=== PATIENT | male | born 1950 | race Caucasian/White ===

== ENCOUNTER → 2024-04-12 | Outpatient (CLI) | payer OTHER, SELFPAY ==
--- NOTE | 2024-04-12 14:30 | XR_ITS ---
Examination: Carotid arterial duplex scan, ultrasound. Date and time of exam: April 12, 2024 1435 hours INDICATIONS: Dizziness ataxia falling episodes beginning 3 months ago Technique: Multiple sonographic images have been obtained of the carotid arteries and vertebral arteries, B-mode/grayscale imaging and Doppler spectral analysis and color flow Peak systolic and diastolic velocities have been recorded. Systolic diastolic ratios have been calculated. Findings: Right peak systolic velocities: Distal internal carotid artery peak systolic velocity is 0.9 M/sec Proximal internal carotid artery peak systolic velocity is 0.8 M/sec Carotid bifurcation peak systolic velocity is 1.0 M/sec External carotid artery peak systolic velocity is 0.8 M/sec Vertebral artery flow is antegrade. Left peak systolic velocities: Distal internal carotid artery peak systolic velocity is 1.5 M/sec Proximal internal carotid artery peak systolic velocity is 0.9 M/sec Carotid bifurcation peak systolic velocity is 0.7 M/sec External carotid artery peak systolic velocity is 0.8 M/sec Vertebral artery flow is antegrade Doppler waveform analysis demonstrates no spectral broadening Impression: Right internal carotid artery demonstrates 0-10% stenosis. Left internal carotid artery demonstrates 0-10% stenosis.
== END | disposition home or self-care (01) ==
LOC: CDIM 14:24
PROVIDERS: PCP Family Medicine; Referring Provider Family Medicine; Visit Provider Family Medicine
DX: R09.89 Other specified symptoms and signs involving the circulatory and respiratory systems (principal)
CPT/HCPCS: 93880

== ENCOUNTER → 2024-06-13 | Outpatient (CLI) | payer OTHER, SELFPAY ==
[2024-06-13 08:35] LABS: Basophils # (Auto) 0.1 Thou/mm3 (0.0-0.2); Basophils % (Auto) 2 % (0-2.5); Eosinophils # (Auto) 0.1 Thou/mm3 (0.0-0.5); Eosinophils % (Auto) 1 % (0-10); Hematocrit 22.8 % (41.0-53.0); Immature Granulocytes % (Auto) 0 % (0-0); Immature Granulocytes Auto 0.02 Thou/mm3 (0.00-0.00); Lymphocytes # (Auto) 1.3 Thou/mm3 (1.0-4.8); Lymphocytes % (Auto) 20 % (10-50); Mean Corpuscular HGB Conc 25.4 g/dl (31.0-37.0); Mean Corpuscular Hemoglobin 15.1 pg (25.0-35.0); Mean Corpuscular Volume 59 fL (80-100); Monocytes # (Auto) 0.6 Thou/mm3 (0.0-0.8); Monocytes % (Auto) 9 % (0-12); Neutrophils # (Auto) 4.2 Thou/mm3 (1.8-7.7); Neutrophils % (Auto) 67 % (37-80); Nucleated Red Blood Cell % 0 /100 WBC (0); Platelet Count 170 Thou/mm3 (140-440); Red Blood Count 3.84 Miln/mm3 (4.50-5.90); White Blood Count 6.3 Thou/mm3 (3.8-10.6)
[2024-06-13 08:50] LABS: Hemoglobin 5.8 g/dL (13.5-16.0)
[2024-06-13 08:59] LABS: Vitamin B12 510 pg/mL (211-911); Vitamin D 25 Hydroxy Total 51.4 ng/mL (7.3-40.2)
[2024-06-13 09:05] LABS: Alanine Aminotransferase 11 U/L (10-49); Albumin, Serum 4.3 gm/dL (3.4-4.8); Alkaline Phosphatase 56 U/L (46-116); Anion Gap 7 (7-16); Aspartate Amino Transferase 15 U/L (0-34); BUN/Creatinine Ratio 24 Ratio (12-20); Bilirubin,Total 0.5 mg/dL (0.3-1.2); Blood Urea Nitrogen 22 mg/dL (9-23); Calcium 8.9 mg/dL (8.3-10.6); Calcium (Corrected) 8.9 mg/dL (8.5-10.1); Carbon Dioxide 23.6 mMol/L (20.0-31.0); Cardiac Risk Estimate 3.5 RATIO (4.0-6.7); Chloride 115 mMol/L (98-107); Cholesterol 137 mg/dL (132-200); Creatinine (Component) 0.9 mg/dL (0.6-1.3); Free T4 (Free Thyroxine) 0.87 ng/dL (0.89-1.76); Globulin 2.1 gm/dL (2.3-3.5); Glucose 119 mg/dL (74-106); HDL Cholesterol 39 mg/dL (40-60); LDL Cholesterol,Calculated 89 mg/dL (0-130); Osmolality,Calculated 294 (275-295); Potassium 4.6 mMol/L (3.4-5.1); Sodium 146 mMol/L (136-145); Thyroid Stimulating Hormone 1.11 uIU/mL (0.55-4.78); Total Protein 6.4 gm/dL (5.7-8.2); Triglycerides 47 mg/dL (30-150); eGFR > 60 See Note
[2024-06-13 09:15] LABS: Syphilis Nonreactive (Nonreactive)
[2024-06-13 11:16] LABS: Misc Send Out* See Sep Rpt
[2024-06-13 16:07] LABS: Path Review Blood Smear Sent to Pathologist
== END | disposition home or self-care (01) ==
LOC: COPL 07:56
PROVIDERS: PCP Family Medicine; Referring Provider Psychiatry & Neurology Neurology; Visit Provider Psychiatry & Neurology Neurology
DX: I10 Essential (primary) hypertension (principal); R27.0 Ataxia, unspecified
CPT/HCPCS: 36415; 80053; 80061; 82306; 82607; 83036; 84439; 84443; 85025; 86780

== ENCOUNTER → 2024-06-15 | Outpatient (CLI) | payer OTHER, SELFPAY ==
--- NOTE | 2024-06-15 15:31 | XR_ITS ---
Examination: CT brain head without contrast. 2-D sagittal coronal reconstructions Date and time of exam:June 15, 2024 1537 hours INDICATIONS: Dizziness with frequent falls over the last 5 months CTDI: vol (mGy):55.6 DLP: (mGycm):1260 Technique: Multiple CT axial sections of the brain have been obtained, 5 mm slice thickness. Contrast has not been administered. 2-D sagittal, coronal reconstructions have been obtained Low dose protocols were performed. One or more of the following dose reduction techniques were used; automated exposure control, adjustment of the mA and/or KV according to patient size, use of iterative reconstruction technique. Findings: No significant ventricular enlargement. Intra-axial or extra-axial hemorrhage density is not seen. No mass effect or midline shift Basal cisterns are not remarkable. Fourth ventricle is midline. Cranial vault intact. Impression: Negative for acute hemorrhage, mass effect or midline shift
== END | disposition home or self-care (01) ==
LOC: CDIM 15:11
PROVIDERS: PCP Family Medicine; Referring Provider Internal Medicine; Visit Provider Internal Medicine
DX: R42 Dizziness and giddiness (principal); R29.6 Repeated falls
CPT/HCPCS: 70450

== ENCOUNTER → 2024-06-18 | Outpatient (CLI) | payer OTHER, SELFPAY ==
[2024-06-18 14:57] LABS: Ferritin 3 ng/mL (10.5-307.3); Iron 8 mcg/dL (65-175); Percent Iron Saturation 2 % (20-55); Total Iron Binding Capacity 360 mcg/dL (250-425); Unsaturated Iron Binding 352 (225-295)
== END | disposition home or self-care (01) ==
LOC: COPL 13:18
PROVIDERS: PCP Family Medicine; Referring Provider Psychiatry & Neurology Neurology; Visit Provider Psychiatry & Neurology Neurology
DX: E61.1 Iron deficiency (principal)
CPT/HCPCS: 36415; 82728; 83540; 83550

== ENCOUNTER → 2024-06-21 | Outpatient (CLI) | payer OTHER, SELFPAY ==
[2024-06-25 07:27] LABS: Fecal Globin Result DETECTED (NOT DETECTED)
== END | disposition home or self-care (01) ==
LOC: SLDO 10:14
PROVIDERS: Referring Provider Family Medicine; Visit Provider Family Medicine
DX: D50.0 Iron deficiency anemia secondary to blood loss (chronic) (principal)
CPT/HCPCS: 82274; G0328

== ENCOUNTER 2024-06-23 11:35 | Inpatient (IN) | payer OTHER, MEDICARE, SELFPAY ==
[2024-06-23] VITALS (17 sets, daily range): BP systolic 99–143; BP diastolic 58–88; PULSE 64–77; RESP 14–20; TEMP 36.6–36.7; O2SAT 95–100; BMI 28.2
--- NOTE | 2024-06-23 12:36 | EKG_ITS ---
[facility] Test Date: 2024-06-23 Pat Name: CAITLIN FARRAR Department: Room: - Gender: Male Procedures Analyst: : 1950 Requested By: Poncho Reis Order Number: [id number] Reading MD: Poncho Reis Measurements Intervals [place] Rate: 74 P: 83 WV: 229 QRS: 21 QRSD: 97 T: 53 QT: 424 QTc: 471 Interpretive Statements SINUS RHYTHM WITH FIRST DEGREE AV BLOCK WITH FREQUENT VENTRICULAR PREMATURE COMPLEXES MINIMAL ST DEPRESSION [0.025+ mV ST DEPRESSION] No previous ECG available for comparison /store/S0/[id number].pdf
--- NOTE | 2024-06-23 12:36 | PD.EDRECHK ---
ED Recheck Abnl Lab Rx-RME/HPI General Chief Complaint: Recheck/Abnormal Lab/Rx Stated Complaint: LOW HBG, SENT BY PCP Time Seen by Provider: 06/23/24 11:45 Arrival date/time: 06/23/24 11:35 RME / HPI RME / HPI narrative: 74-year-old male patient was sent to us by Dr. Hubbard for possible upper GI bleed. Patient's been having generalized body weakness, and today he went to PCP and was referred for a hemoglobin of 5.8. Patient has been having coffee-ground colored stool for the last few days. He denies any abdominal pain denies any vomiting blood denies any other complaints patient is not taking any blood thinner. Related Data Home Medications ?Medication ?Instructions ?Recorded ?Confirmed amlodipine 10 mg tablet (Norvasc) 10 mg PO QDAY #0 tabs 06/03/16 10/08/22 hydrocodone 5 mg-acetaminophen 325 1 tab PO Q6H PRN Pain #0 tabs 06/03/16 10/08/22 mg tablet Held on 10/08/22. Instructions: Resume on 10/09/22. paroxetine HCl 40 mg tablet 1 tab PO QDAY 08/14/21 10/08/22 doxazosin 4 mg tablet 4 mg PO QDAY 03/05/22 10/08/22 pantoprazole 40 mg tablet,delayed 40 mg PO QDAY 03/05/22 10/08/22 release Allergies Allergy/AdvReac Type Severity Reaction Status Date / Time lisinopril Allergy Mild felt weak Verified 10/08/22 15:09 Review of Systems Review of Systems Narrative Review of Systems: Review of system reviewed and within normal limits except mentioned in HPI ED Exam Narrative Physical exam: VITAL SIGNS: Reviewed. GENERAL APPEARANCE: Alert and interactive, follows commands, no acute distress, HEAD AND FACE: Non-traumatic. ENT: PERRL, pale conjunctiva, eyelid no trauma, Mucous membrane moist. NECK: Supple, nontender, no nuchal rigidity. CHEST: No tenderness, no crepitus, no paradoxical movement, no retractions. LUNGS: Clear, well ventilated, symmetric, no rales, no wheezing, no ronchi, no stridor, good breath sounds bilaterally. HEART: Regular rate, regular rhythm, no murmur, no gallops. ABDOMEN: Soft, positive bowel sounds, nondistended, no guarding, nontender, no rebound, no masses, RECTAL: Deferred. GENITAL: Deferred. NEUROLOGICAL: Gross motor function intact sensory function intact, Appropriate for age. MUSCULOSKELETAL: low back nontender, full range of motion. EXTREMITIES: Nontender, full range of motion. SKIN: Color pale, dry, no rash, no lacerations, no abrasions, no contusions. LYMPHATICS: Deferred. Course Quality Measures none Orders Category Date Time Status EKG (ED ONLY) *Do not use* NOW Care 06/23/24 12:36 Active Insert IV NOW Care 06/23/24 13:19 Active Occult Blood,Stool (Nursing) ONCE Care 06/23/24 12:35 Active Transfuse,blood/blood products ONCE Care 06/23/24 12:35 Active Consult to Gastroenterology Stat Cons 06/23/24 15:00 Ordered EKG (ED Only) Stat Exams 06/23/24 12:36 Draft CBC Stat Lab 06/23/24 12:44 Completed Comprehensive Metabolic Panel Stat Lab 06/23/24 12:44 Completed Partial Thromboplastin Time Stat Lab 06/23/24 12:44 Completed Prothrombin Time with INR Stat Lab 06/23/24 12:44 Completed Red Blood Cells Stat Lab 06/23/24 12:44 Results Type and Screen Stat Lab 06/23/24 12:44 Results Urinalysis Stat Lab 06/23/24 12:35 Ordered Pantoprazole Inj [Protonix Inj] Med 06/23/24 12:36 Discontinued 80 mg IV X1 ONE Vital Signs Vital signs: Vital Signs Temperature 98.1 F 06/23/24 12:25 Pulse Rate 69 06/23/24 12:25 Respiratory Rate 18 06/23/24 12:25 Blood Pressure 126/72 06/23/24 12:25 Pulse Oximetry (%) 100 06/23/24 12:25 Oxygen Delivery Method Room Air 06/23/24 12:25 Recheck / Abnormal Lab / Rx MDM Narrative MDM Narrative:: 74-year-old male patient was sent to us by Dr. Hubbard for possible upper GI bleed. Patient's been having generalized body weakness, and today he went to PCP and was referred for a hemoglobin of 5.8. Patient has been having coffee-ground colored stool for the last few days. He denies any abdominal pain denies any vomiting blood denies any other complaints patient is not taking any blood thinner. I did a rectal exam, and any greenish colored stool noted, positive for occult blood Patient received 2 units of packed RBC, and was started on IV Protonix Spoke with Dr. Hubbard, GI specialist on-call, who advised me to keep the patient for endoscopy tomorrow. Patient data External records reviewed:: None Clinical information provided by:: patient and family Social determinants that could affect healthcare access:: none Patient has the following chronic illnesses:: Hypertension How is presenting disease/condition affected by chronic disease/condition?: exacerbated by Evaluation data The following diagnostics were reviewed and interpreted by me:: lab results and radiology exam(s) Lab and/or radiology exams considered but not ordered:: None Interpretation Summary: Patient's hemoglobin today was noted to be 6.3 hematocrit of 24.4 platelets is normal Medications / Prescriptions Medications or Prescriptions considered but not ordered:: None Medication administrations:: Medication Administration History Discontinued Medications Pantoprazole Sodium (Pantoprazole Inj 40 Mg Vial) 80 mg IV X1 ONE Stop: 06/23/24 12:37 Protonix IV Consultations Consultation(s) initiated? (list below): Yes Consultation #1 (Physician, Specialty, Details): Dr. Hubbard, GI specialist on-call, thank you Dr. Hubbard Diagnosis Recheck Differential Diagnosis: other (Anemia, upper GI bleed,) Most likely diagnosis given after review of the tests above:: Anemia, upper GI bleed Admission Indicated Admission indicated?: indicated Admission Request Was there a request for admission?: Yes Admission Attestation Admission request attestation: Discussed case with [Dr. Palafox] from Hospitalist service regarding admission. Discussed patients ED course, exam findings, labs, and radiology results. The Hospitalist [agrees] to accept the patient for admission. Disposition Plan Disposition Plan: Admit Discharge Plan Plan Patient Disposition: Admit Acute Care w/in Hospital Prescriptions/Referrals Prescriptions/Med Rec: No Action amlodipine [Norvasc] 10 MG tablet 10 mg PO QDAY Qty: 0 hydrocodone-acetaminophen 5-325 mg Tablet 1 tab PO Q6H PRN (Reason: Pain) Qty: 0 paroxetine HCl 40 mg tablet 1 tab PO QDAY doxazosin 4 mg tablet 4 mg PO QDAY pantoprazole 40 mg Tablet,Delayed Release (Dr/Ec) 40 mg PO QDAY Referrals: Nestor Barrera MD [Primary Care Provider] - In 1 week Problem List Clinical Impression: Acute upper gastrointestinal bleeding, Anemia Patient/Caregiver Discharge Instructions Print Language: Turkmen Stand Alone Forms: Jess Award Info., Patient Portal Info Letter
[2024-06-23 13:04] LABS: Basophils # (Auto) 0.1 Thou/mm3 (0.0-0.2); Basophils % (Auto) 1 % (0-2.5); Eosinophils % (Auto) 1 % (0-10); Hematocrit 24.3 % (41.0-53.0); Immature Granulocytes % (Auto) 0 % (0-0); Immature Granulocytes Auto 0.03 Thou/mm3 (0.00-0.00); Lymphocytes # (Auto) 1.7 Thou/mm3 (1.0-4.8); Lymphocytes % (Auto) 20 % (10-50); Mean Corpuscular HGB Conc 25.9 g/dl (31.0-37.0); Mean Corpuscular Hemoglobin 15.9 pg (25.0-35.0); Mean Corpuscular Volume 62 fL (80-100); Monocytes # (Auto) 0.8 Thou/mm3 (0.0-0.8); Monocytes % (Auto) 9 % (0-12); Neutrophils % (Auto) 69 % (37-80); Nucleated Red Blood Cell % 0 /100 WBC (0); Platelet Count 279 Thou/mm3 (140-440); RDW Standard Deviation 53.5 fL (35.1-43.9); Red Blood Count 3.95 Miln/mm3 (4.50-5.90); White Blood Count 8.6 Thou/mm3 (3.8-10.6)
[2024-06-23 13:16] LABS: INR 1.1 (0.9-1.3); Partial Thromboplastin Time 25.3 Seconds (22.0-36.0); Prothrombin Time 12.2 Seconds (9.0-12.2)
[2024-06-23 13:21] LABS: Hemoglobin 6.3 g/dL (13.5-16.0)
[2024-06-23 13:25] LABS: Albumin, Serum 4.4 gm/dL (3.4-4.8); Albumin/Globulin Ratio 2.1 (1.2-2.2); Alkaline Phosphatase 55 U/L (46-116); Anion Gap 8 (7-16); Aspartate Amino Transferase 15 U/L (0-34); BUN/Creatinine Ratio 19 Ratio (12-20); Bilirubin,Total 0.5 mg/dL (0.3-1.2); Blood Urea Nitrogen 15 mg/dL (9-23); Calcium 8.5 mg/dL (8.3-10.6); Calcium (Corrected) 8.5 mg/dL (8.5-10.1); Carbon Dioxide 23.4 mMol/L (20.0-31.0); Chloride 111 mMol/L (98-107); Creatinine (Component) 0.8 mg/dL (0.6-1.3); Estimated Creatinine Clearance 85.6 mL/min (>60); Globulin 2.1 gm/dL (2.3-3.5); Glucose 87 mg/dL (74-106); Osmolality,Calculated 282 (275-295); Potassium 4.5 mMol/L (3.4-5.1); Sodium 142 mMol/L (136-145); Total Protein 6.5 gm/dL (5.7-8.2); eGFR > 60 See Note
[2024-06-23 13:29] LABS: Alanine Aminotransferase 11 U/L (10-49)
[2024-06-23 15:55] LABS: Collection Type, Urine Clean Catch; Squamous Epithelial Cell,Urine 0 /hpf (0-5)
[2024-06-23 16:06] LABS: Path Review Blood Smear Sent to Pathologist
[2024-06-23 16:42] LABS: Bilirubin,Urine Negative (Negative); Blood,Urine Negative (Negative); Clarity,Urine Clear (Clear/Hazy); Color,Urine Yellow (Lt Yel-Yel); Glucose, Urine Negative (Negative); Ketones,Urine Negative (Negative); Leukocyte Esterase,Urine Negative (Negative); Nitrite,Urine Negative (Negative); Protein,Urine Negative (Neg - Trace); RBC,Urine 2 /hpf (0-3); Specific Gravity,Urine 1.012 (1.001-1.035); Urobilinogen,Urine Negative mg/dL (0.0-1.0); WBC,Urine < 1 /hpf (0-5)
[2024-06-23] MEDS: NICOTINE PATCH 21 MG/24 HR PATCH.TD24 TOP (17:33)
[2024-06-23] MEDS: HYDROcodone/APAP 5/325 TABLET 1 TAB PO (17:40)
[2024-06-23] MEDS: PANTOPRAZOLE INJ 40 MG VIAL 80 MG IV (17:41)
--- NOTE | 2024-06-23 19:30 | ESCONSULT_ITS ---
HPI Data of Consult Requesting Physician: Vineet Bradley MD Primary Care Provider: Nestor Barrera MD Consult Narrative Reason for consult: Hemoglobin 5.8 History of present illness: 74 years old male who was evaluated by office appeared to be quite pale weak Hemoglobin drawn 10 days ago showed it to be 5.8 after I checked it Patient sent to the ER from where he was admitted He has a history of esophageal requiring endoscopic dilatation in the past He does have a history of essential hypertension BPH related issues chronic pain for which he takes [place] and currently on pantoprazole along with Paxil No history of any jeet GI bleeding in the form of hematemesis melena or bright red bleeding cc:: cc: Vineet Bradley MD Review of Systems Review of Systems Systems Reviewed: All systems reviewed, normal except as documented Past Medical History Surgical History OTHER SURGICAL HX: Esophageal requiring endoscopic dilatation Essential hypertension BPH related symptoms chronic pain syndrome on [place] Meds Home Medications and Allergies Home Medications ?Medication ?Instructions ?Recorded ?Confirmed ?Type hydrocodone 5 mg-acetaminophen 325 1 tab PO Q6H PRN Pa in #0 tabs 06/03/16 06/23/24 History mg tablet Held on 10/08/22. Instructions: Resume on 10/09/22. paroxetine HCl 40 mg tablet 1 tab PO QDAY 08/14/2105/15 History pantoprazole 40 mg tablet,delayed 40 mg PO QDAY 06/23/24 History release albuterol sulfate 90 mcg/actuation 2 puff inhalation Q 6H PRN 06/23/24 06/23/24 History aerosol inhaler shortness of breath or wheez ing Allergies Allergy/AdvReac Type Severity Reaction Status Date / Time lisinopril Allergy Mild felt weak Verified 10/08/22 15:09 Exam Vital Signs Temp Pulse Resp BP Pulse Ox O2 Del Method 97.9 F 67 16 123/75 99 Room Air 06/23/24 18:56 06/23/24 18:56 06/23/24 18:56 06/23/24 18:56 06/23/24 18:56 06/23/24 18:56 Constitutional Comments: appears to be weak and pale Routine Abdominal Exam Comments: Soft nontender Results Labs 06/24/24 06:33 06/24/24 06:33 Labs: Short CBC 06/23/24 Range/Units 12:44 WBC 8.6 (3.8-10.6) Thou/mm3 Hgb 6.3 L* (13.5-16.0) g/dL Hct 24.3 L (41.0-53.0) % Plt Count 279 D (140-440) Thou/mm3 BMP 06/23/24 12:44 Sodium 142 Potassium 4.5 Chloride 111 H Carbon Dioxide 23.4 BUN 15 Creatinine 0.8 Glucose 87 Calcium 8.5 Liver Function 06/23/24 Range/Units 12:44 Total Bilirubin 0.5 (0.3-1.2) mg/dL AST 15 (0-34) U/L ALT 11 (10-49) U/L Alkaline Phosphatase 55 (46-116) U/L Albumin 4.4 (3.4-4.8) gm/dL Urine 06/23/24 Range/Units 15:49 Urine Color Yellow (Lt Yel-Yel) Urine Clarity Clear (Clear/Hazy) Urine pH 6.0 (5.0-7.0) Ur Specific [place] 1.012 (1.001-1.035) Urine Protein Negative (Neg - Trace) Urine Glucose (UA) Negative (Negative) Assessment and Plan Additional Assessment & Plan Additional Plan: # Anemia blood loss Agree with the blood transfusion N.p.o. midnight tonight except p.o. meds Consent obtained for fiberoptic esophagogastroduodenoscopy with possible biopsies possible therapeutic intervention scheduled for tomorrow morning In case the EGD is negative we will consider doing a fiberoptic colonoscopy during this hospitalization Other medical problems include Essential hypertension BPH Chronic pain syndrome Esophageal stricture history of requiring endoscopic dilatation Thank you very much for the opportunity to participate in the care of this patient
--- NOTE | 2024-06-23 19:38 | PC.NURSE ---
Pt is alert and oriented. States he is feeling better than when he arrived.
--- NOTE | 2024-06-23 19:41 | ESHP_ITS ---
<Statement entered by Nandini Peña MD - 06/24/24 06:46> Patient was seen and examined at bedside. I agree on most of the assessment and plan of this patient. - Patient's plan and care discussed with my attending, Dr. Ceasar Peña MD Internal Medicine PGY-2 Documentation for date of: 06/23/24 HPI History of Present Illness History of present illness: Alok is a 74-year-old male with past medical history of hypertension, BPH, Jon's esophagus, tobacco use, who comes in for an evaluation of generalized weakness and dark tarry stools, onset 10 days ago. Patient reports that he has had blood in his stool before first occurring about 3 years ago which she has had extensive EGD and colonoscopy workup. He also says that he has had a benign colonic tumor removed in 2007. He says that about a month ago he started feeling weak and had fallen a couple times, however has not passed out. He has recently been seeing a neurologist who had ordered him labs and when those resulted it was noticed that he had hemoglobin of 5. He was also seen by another doctor who had noticed that he was pale and that his hemoglobin was 5 and had recommended for patient to go to the emergency room. He had said that he delayed on coming to the emergency room because he did not know his hemoglobin was low, however he has seen some of his stools that were dark. He also states that he has bowel movements every day. Denies passing out, having any heart murmurs, dizziness, headache, chest pain or shortness of breath. Denies any recent travel. Denies any NSAID use or being on any blood thinners including aspirin. Used to see Dr. Severino at some point. He also endorses having 80 pound weight loss within the past year that he says is intentional and is all due to him cleaning up his diet and no medicines. No other complaints at this time ED course: He had arrived to the emergency room with a temperature of 98.1, heart rate 69, respiratory rate 18, blood pressure 126/72, saturating 100% on room air. He was worked up was found to have hemoglobin 6.3, 8.6, potassium 4.5, sodium 142, BUN/creatinine 15 and 0.8 respectively, sugar 87, calcium 8.5, coagulation panel unremarkable, T. bili unremarkable. Patient also had a BRENNEN done in the emergency room which had blood as well. EKG was done which showed heart rate of 74, some possible PVCs or right degree AV block. He was given 80 IV Protonix, 2 PRBCs. Medicine was consulted for further admission and workup. PMHx: As above Surgeries: Knee surgery Meds: Paxil 40 mg, [place] 5 every 8 hours, pending other medicines Allergies: Lisinopril sometimes makes him feel weak Family Hx: Father, who was overweight, had some form of cancer however he is unsure what type of cancer it was, mother had breast cancer will also passed as well. 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 with no kids. Used to be a heavy drinker drinking up to 1/5 of whiskey back in his day, however has not drank in over 20 years. 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 Smokes some marijuana occasionally. Has smoking history as well and nicotine patches. Says that he recently changed up his diet he stopped eating bad things and he was able to lose 80 pounds. Review of Systems Review of Systems Narrative Review of Systems: Constitutional: No fever, chills, fatigue, positive generalized weakness, positive weight loss HEENT: No eye pain, vision loss, ear pain, hearing loss, dysphagia, Cardiovascular: No chest pain, palpitations, edema, pain with walking Respiratory: No cough, shortness of breath, wheezing GI: No NVD, abdominal pain, constipation, blood in stool, loss of appetite, heartburn Extremities: No presence of pitting edema MSK: No back pain, joint pain, joint swelling Neuro: No dizziness, numbness, weakness, headaches, seizures, tremors Psych: No anxiety, depression Exam Vital Signs Temp Pulse Resp BP Pulse Ox O2 Del Method 97.9 F 69 18 134/73 H 98 Room Air 06/23/24 18:56 06/23/24 19:36 06/23/24 19:36 06/23/24 19:36 06/23/24 19:36 06/23/24 19:36 Narrative Exam General: AAOx3, NAD, pleasant overweight male, wearing glasses HEENT: Moist mucous membranes, pale conjunctiva bilaterally, EOMI, PERRLA, Cardiovascular: S1, S2, radial pulses +2 bilat, RRR Pulmonary: CTAB bilat no cough, no wheezing GI: No tenderness to light or deep palpitation, no guarding, rigidity, rebound tenderness or distension Extremities: No presence of trace or pitting edema in lower extremities bilaterally, dorsalis pedis pulses +2 bilaterally Neuro: AAOx3, no focal motor or sensory deficits in the UE or LE bilat Psych: Good judgement, thought and behavior. Cooperative Results: Labs 06/24/24 06:33 06/23/24 12:44 Labs: Short CBC 06/23/24 Range/Units 12:44 WBC 8.6 (3.8-10.6) Thou/mm3 Hgb 6.3 L* (13.5-16.0) g/dL Hct 24.3 L (41.0-53.0) % Plt Count 279 D (140-440) Thou/mm3 BMP 06/23/24 12:44 Sodium 142 Potassium 4.5 Chloride 111 H Carbon Dioxide 23.4 BUN 15 Creatinine 0.8 Glucose 87 Calcium 8.5 Liver Function 06/23/24 Range/Units 12:44 Total Bilirubin 0.5 (0.3-1.2) mg/dL AST 15 (0-34) U/L ALT 11 (10-49) U/L Alkaline Phosphatase 55 (46-116) U/L Albumin 4.4 (3.4-4.8) gm/dL Urine 06/23/24 Range/Units 15:49 Urine Color Yellow (Lt Yel-Yel) Urine Clarity Clear (Clear/Hazy) Urine pH 6.0 (5.0-7.0) Ur Specific [place] 1.012 (1.001-1.035) Urine Protein Negative (Neg - Trace) Urine Glucose (UA) Negative (Negative) Quality Measures Quality Measures none Advance care planning discussed with:: patient Medications Home Medications and Allergies Home Medications ?Medication ?Instructions ?Recorded ?Confirmed ?Type hydrocodone 5 mg-acetaminophen 325 1 tab PO Q6H PRN Pa in #0 tabs 06/03/16 06/23/24 History mg tablet Held on 10/08/22. Instructions: Resume on 10/09/22. paroxetine HCl 40 mg tablet 1 tab PO QDAY 08/14/2105/15 History pantoprazole 40 mg tablet,delayed 40 mg PO QDAY 06/23/24 History release albuterol sulfate 90 mcg/actuation 2 puff inhalation Q 6H PRN 06/23/24 06/23/24 History aerosol inhaler shortness of breath or wheez ing Allergies Allergy/AdvReac Type Severity Reaction Status Date / Time lisinopril Allergy Mild felt weak Verified 10/08/22 15:09 Visit Medications Acetaminophen (Acetaminophen 325 Mg Tablet) 650 mg PO Q6H PRN PRN Reason: Fever >100 or pain 1-3 Stop: 07/23/24 19:31 Hydrocodone Bitart/Acetaminophen (Hydrocodone/Apap 5/325 Tablet) 1 tab PO Q8H PRN PRN Reason: PAIN SCALE 4-6 (Moderate Stop: 06/28/24 19:31 Ondansetron HCl (Ondansetron Inj 2 Mg/Ml Inj 2 Ml) 4 mg IV Q6H PRN; Protocol PRN Reason: NAUSEA OR VOMITING Stop: 07/23/24 19:31 Paroxetine HCl (Paroxetine Hcl 10 Mg Tablet) 40 mg PO QDAY AVERY Stop: 07/24/24 08:59 Discontinued Medications Hydrocodone Bitart/Acetaminophen (Hydrocodone/Apap 5/325 Tablet) 1 tab PO X1 ONE Stop: 06/23/24 17:37 Last Admin: 06/23/24 17:40 Dose: 1 tab Nicotine (Nicotine Patch 21 Mg/24 Hr Patch.Td24) 21 mg TOP X1 ONE Stop: 06/23/24 17:01 Last Admin: 06/23/24 17:33 Dose: 21 mg Pantoprazole Sodium (Pantoprazole Inj 40 Mg Vial) 80 mg IV X1 ONE Stop: 06/23/24 12:37 Last Admin: 06/23/24 17:41 Dose: 80 mg Assessment & Plan Plan Assessment Alok is a 74-year-old male with past medical history of hypertension, BPH, Jon's esophagus, tobacco use, who is currently admitted for acute blood loss anemia and GI bleed. #Acute blood loss anemia #GI bleed #Iron deficiency anemia #History of Jon's esophagus DDx: AVM, Cancer, chronic anemia, medication induced FOBT: Pending NSAID use: None Blood thinner use: None Hemoglobin of 6.3 upon arrival Patient does have history of Jon's esophagus seen on previous EGDs up to 2022 Patient has also had colonic tumor removed in 2007 Due to patient's massive and recent weight loss about 80 pounds within 1 year, malignancy cannot be ruled out at this time Ferritin appears to be 3 at this time Receiving 2 PRBCs currently No history of esophageal varices or portal hypertension, therefore octreotide or propranolol not indicated at this time Patient will need EGD followed by colonoscopy to identify source of bleeding, will do EGD first at this time due to color and nature of bleed Plan: ? Trend CBC ? Transfusion protocol hemoglobin below 7 ? Avoiding any NSAIDs ? SCDs ? Protonix 40 mg IV twice daily ? Follow-up posttransfusion H&H ? N.p.o. at midnight for EGD tomorrow #Hypertension #History of BPH Chronic Plan: ? Holding blood pressure medicines including doxazosin as blood pressures soft at this point #History of tobacco use Plan: ? Nicotine patch as needed #Chronic lower back pain Plan: ? Resumed home [place] 5 every 8 hours # #History of depression Plan: ? Resume home Paxil 40 mg daily #Health Maintenance Disposition: Telemetry DVT prophylaxis: SCDs GI prophylaxis: Protonix 40 mg IV twice daily Diet: Clear liquid, n.p.o. at midnight CODE STATUS: Full Patient seen and care discussed with my senior resident, Dr. Mcdonough, and my attending physician, Dr. Casey Bradley, PGY-1 Attending Provider Attestation/Addendum I have examined the patient, reviewed labs and imaging findings, discussed the case with the resident(s), and reviewed entered orders. I agree with the plan of care as outlined in this note, with these additional summaries/recommendations: Patient seen at bedside. He reports he was seen by PCP and was referred for low hemoglobin. He reports he has had dark-colored stools for the last few days. He denies any abdominal pain or vomiting. He denies taking blood thinners. On admission hemoglobin noted to be 6.3. Patient will be admitted for acute blood loss anemia secondary to GI bleed. Gastroenterology consulted with plans for endoscopic intervention tomorrow. Blood transfusion ordered, follow-up posttransfusion H&H. Continue fluids and avoid all chemical anticoagulation. Transfuse for hemoglobin less than 7. Previous iron panel shows severe iron deficiency anemia with ferritin 3. If EGD is unrevealing then patient would likely benefit from colonoscopy given severe iron deficiency anemia. Continue breathing treatments as needed for history of COPD. Patient is currently normotensive and no need for antihypertensive at this time. Patient updated on the plan and in agreement. All questions answered to satisfaction. Please see residents note for additional details of management. Dr. Ceasar MD
[2024-06-23 20:30] LABS: Hematocrit 28.8 % (41.0-53.0)
[2024-06-23 20:32] LABS: Hemoglobin 8.1 g/dL (13.5-16.0)
--- NOTE | 2024-06-23 20:44 | PC.NURSE ---
Report called to esther BURKETT. Pt taken to rm 354 on electronic device monitor by me.
[2024-06-24] VITALS (18 sets, daily range): BP systolic 109–159; BP diastolic 57–80; PULSE 68–89; RESP 12–26; TEMP 36.2–37.2; O2SAT 95–100; BMI 30.1
[2024-06-24 07:04] LABS: Basophils # (Auto) 0.1 Thou/mm3 (0.0-0.2); Basophils % (Auto) 2 % (0-2.5); Eosinophils # (Auto) 0.1 Thou/mm3 (0.0-0.5); Eosinophils % (Auto) 2 % (0-10); Hematocrit 28.7 % (41.0-53.0); Immature Granulocytes % (Auto) 1 % (0-0); Immature Granulocytes Auto 0.03 Thou/mm3 (0.00-0.00); Lymphocytes # (Auto) 1.3 Thou/mm3 (1.0-4.8); Lymphocytes % (Auto) 19 % (10-50); Mean Corpuscular HGB Conc 27.2 g/dl (31.0-37.0); Mean Corpuscular Hemoglobin 18.3 pg (25.0-35.0); Mean Corpuscular Volume 67 fL (80-100); Monocytes # (Auto) 0.6 Thou/mm3 (0.0-0.8); Monocytes % (Auto) 10 % (0-12); Neutrophils # (Auto) 4.5 Thou/mm3 (1.8-7.7); Neutrophils % (Auto) 68 % (37-80); Nucleated Red Blood Cell % 0 /100 WBC (0); Platelet Count 259 Thou/mm3 (140-440); Red Blood Count 4.26 Miln/mm3 (4.50-5.90); White Blood Count 6.6 Thou/mm3 (3.8-10.6)
[2024-06-24 07:06] LABS: Hemoglobin 7.8 g/dL (13.5-16.0); INR 1.2 (0.9-1.3); Partial Thromboplastin Time 26.8 Seconds (22.0-36.0); Prothrombin Time 12.6 Seconds (9.0-12.2)
[2024-06-24 07:34] LABS: Glucose Estimated Average 103 mg/dL (80-131); Hemoglobin A1C 5.2 % Hgb (4.8-6.0)
[2024-06-24 07:41] LABS: Alanine Aminotransferase 9 U/L (10-49); Albumin, Serum 3.9 gm/dL (3.4-4.8); Albumin/Globulin Ratio 2.1 (1.2-2.2); Alkaline Phosphatase 50 U/L (46-116); Anion Gap 9 (7-16); Aspartate Amino Transferase 13 U/L (0-34); BUN/Creatinine Ratio 13 Ratio (12-20); Blood Urea Nitrogen 10 mg/dL (9-23); Calcium 8.3 mg/dL (8.3-10.6); Calcium (Corrected) 8.4 mg/dL (8.5-10.1); Carbon Dioxide 22.8 mMol/L (20.0-31.0); Cardiac Risk Estimate 3.7 RATIO (4.0-6.7); Chloride 113 mMol/L (98-107); Cholesterol 127 mg/dL (132-200); Creatinine (Component) 0.8 mg/dL (0.6-1.3); Estimated Creatinine Clearance 88.2 mL/min (>60); Globulin 1.9 gm/dL (2.3-3.5); Glucose 101 mg/dL (74-106); HDL Cholesterol 34 mg/dL (40-60); LDL Cholesterol,Calculated 76 mg/dL (0-130); Magnesium 1.9 mg/dL (1.6-2.6); Osmolality,Calculated 287 (275-295); Phosphorous 3.8 mg/dL (2.4-5.1); Potassium 3.8 mMol/L (3.4-5.1); Sodium 145 mMol/L (136-145); Total Protein 5.8 gm/dL (5.7-8.2); Triglycerides 83 mg/dL (30-150); eGFR > 60 See Note
[2024-06-24] MEDS: PARoxetine HCL 10 MG TABLET 40 MG PO (08:32)
[2024-06-24] MEDS: HYDROcodone/APAP 5/325 TABLET 1 TAB PO ×2 (08:33→16:38)
--- NOTE | 2024-06-24 09:49 | PC.SS ---
This is 74-year-old, , male who presented to the ED for low hemoglobin level. Patient appeared alert and oriented to self, place and situation. Patient was pleasant. Patient resides at home with his , Dora. Patient is independent with all ADLs, no DME use. Patient assigned his , Dora as his medical decision maker. Patient's PCP is Dr. Barrera. When medically clear, patient will return home with his . Patient does not require transportation. Discharge plan: home.
--- NOTE | 2024-06-24 11:06 | ESPR_ITS ---
Documentation for date of: 06/24/24 Subjective Subjective Interval history: Patient examined at bedside today. No acute overnight events. Patient reports he is doing well is waiting for his EGD. He is wondering when he is going to have his EGD. He reports that he is also ready for the colonoscopy to happen afterwards. He has not had any bloody bowel movements or coughed up blood. No other complaints at this time. Exam Vital Signs Temp Pulse Resp BP Pulse Ox O2 Del Method 97.2 F 69 26 H 159/80 H 95 Room Air 06/24/24 07:56 06/24/24 08:00 06/24/24 07:56 06/24/24 07:56 06/24/24 07:56 06/24/24 07:56 Narrative Exam General: AAOx3, NAD, pleasant overweight male, wearing glasses HEENT: Moist mucous membranes, pale conjunctiva bilaterally, EOMI, PERRLA, Cardiovascular: S1, S2, radial pulses +2 bilat, RRR Pulmonary: CTAB bilat no cough, no wheezing GI: No tenderness to light or deep palpitation, no guarding, rigidity, rebound tenderness or distension Extremities: No presence of trace or pitting edema in lower extremities bilaterally, dorsalis pedis pulses +2 bilaterally Neuro: AAOx3, no focal motor or sensory deficits in the UE or LE bilat Psych: Good judgement, thought and behavior. Cooperative Objective Labs 06/25/24 06:23 06/25/24 05:30 Labs: Laboratory Results - last 24 hr 06/23/24 06/23/24 06/23/24 12:44 15:49 20:20 WBC 8.6 RBC 3.95 L Hgb 6.3 L* 8.1 L D Hct 24.3 L 28.8 L MCV 62 L MCH 15.9 L MCHC 25.9 L RDW Std Deviation 53.5 H Plt Count 279 D Neut % (Auto) 69 Lymph % (Auto) 20 [place] % (Auto) 9 Eos % (Auto) 1 Baso % (Auto) 1 Neut # (Auto) 6.0 Lymph # (Auto) 1.7 [place] # (Auto) 0.8 Eos # (Auto) 0.0 Baso # (Auto) 0.1 Immature Gran # (Auto) 0.03 H Absolute Nucleated RBC 0.00 Immature Gran % 0 Nucleated RBC % 0 Smear Path Review Sent to Pathologist PT 12.2 INR 1.1 APTT 25.3 Sodium 142 Potassium 4.5 Chloride 111 H Carbon Dioxide 23.4 Anion Gap 8 BUN 15 Creatinine 0.8 Estim Creat Clear Calc 85.6 eGFR > 60 BUN/Creatinine Ratio [address] Glu mg/dL Hemoglobin A1c Calculated Osmolality 282 Calcium 8.5 Corrected Calcium 8.5 Phosphorus Magnesium Total Bilirubin 0.5 AST 15 ALT 11 Alkaline Phosphatase 55 Total Protein 6.5 Albumin 4.4 Globulin 2.1 L Albumin/Globulin Ratio 2.1 Triglycerides Cholesterol LDL Cholesterol, Calc HDL Cholesterol Cholesterol/HDL Ratio Ur Collection Type Clean Catch Urine Color Yellow Urine Clarity Clear Urine pH 6.0 Ur Specific [place] 1.012 Urine Protein Negative Urine Glucose (UA) Negative Urine Ketones Negative Urine Blood Negative Urine Nitrite Negative Urine Bilirubin Negative Urine Urobilinogen (Auto) Negative Ur Leukocyte Esterase Negative Urine RBC 2 Urine WBC < 1 Ur Squamous Epith Cells 0 Urine Bacteria None Blood Type A Positive Antibody Screen NEGATIVE Crossmatch See Detail Blood Bank Wristband ID Yes 06/24/24 06:33 WBC 6.6 RBC 4.26 L Hgb 7.8 L Hct 28.7 L MCV 67 L MCH 18.3 L MCHC 27.2 L RDW Std Deviation 68.0 H Plt Count 259 Neut % (Auto) 68 Lymph % (Auto) 19 [place] % (Auto) 10 Eos % (Auto) 2 Baso % (Auto) 2 Neut # (Auto) 4.5 Lymph # (Auto) 1.3 [place] # (Auto) 0.6 Eos # (Auto) 0.1 Baso # (Auto) 0.1 Immature Gran # (Auto) 0.03 H Absolute Nucleated RBC 0.00 Immature Gran % 1 H Nucleated RBC % 0 Smear Path Review PT 12.6 H INR 1.2 APTT 26.8 Sodium 145 Potassium 3.8 D Chloride 113 H Carbon Dioxide 22.8 Anion Gap 9 BUN 10 Creatinine 0.8 Estim Creat Clear Calc 88.2 eGFR > 60 BUN/Creatinine Ratio [address] Glu mg/dL 103 Hemoglobin A1c 5.2 Calculated Osmolality 287 Calcium 8.3 Corrected Calcium 8.4 L Phosphorus 3.8 Magnesium 1.9 Total Bilirubin 1.0 D AST 13 ALT 9 L Alkaline Phosphatase 50 Total Protein 5.8 Albumin 3.9 D Globulin 1.9 L Albumin/Globulin Ratio 2.1 Triglycerides 83 Cholesterol 127 L LDL Cholesterol, Calc 76 HDL Cholesterol 34 L Cholesterol/HDL Ratio 3.7 L Ur Collection Type Urine Color Urine Clarity Urine pH Ur Specific [place] Urine Protein Urine Glucose (UA) Urine Ketones Urine Blood Urine Nitrite Urine Bilirubin Urine Urobilinogen (Auto) Ur Leukocyte Esterase Urine RBC Urine WBC Ur Squamous Epith Cells Urine Bacteria Blood Type Antibody Screen Crossmatch Blood Bank Wristband ID Quality Measures Quality Measures none Advance care planning discussed with:: patient Assessment & Plan Assessment Current Active Medications: Generic Name Dose Route Start Last Admin Trade Name Freq PRN Reason Stop Dose Admin Acetaminophen 650 mg 06/23/24 19:32 Acetaminophen 325 Mg Tablet PO 07/23/24 19:31 Q6H PRN Fever >100 or pain 1-3 Hydrocodone Bitart/Acetaminophen 1 tab 06/23/24 19:32 06/24/24 08:33 Hydrocodone/Apap 5/325 Tablet PO 06/28/24 19:31 1 tab Q8H PRN Administration PAIN SCALE 4-6 (Moderate Albuterol/Ipratropium 3 ml 06/23/24 19:47 Albuterol/Ipratropium (Duoneb) Rt Majo 3 Ml Nebu INH 07/23/24 19:46 Q2HR PRN SHORTNESS OF BREATH OR WHEEZE Ondansetron HCl 4 mg 06/23/24 19:32 Ondansetron Inj 2 Mg/Ml Inj 2 Ml IV 07/23/24 19:31 Q6H PRN NAUSEA OR VOMITING Protocol Pantoprazole Sodium 40 mg 06/24/24 21:00 Pantoprazole Inj 40 Mg Vial IVP 07/24/24 20:59 BID AVERY Paroxetine HCl 40 mg 06/24/24 09:00 06/24/24 08:32 Paroxetine Hcl 10 Mg Tablet PO 07/24/24 08:59 40 mg QDAY AVERY Administration Plan Assessment Alok is a 74-year-old male with past medical history of hypertension, BPH, Jon's esophagus, tobacco use, who is currently admitted for acute blood loss anemia and GI bleed. #Acute blood loss anemia #GI bleed #Iron deficiency anemia #History of Jon's esophagus DDx: AVM, Cancer, chronic anemia, medication induced FOBT: Pending NSAID use: None Blood thinner use: None Hemoglobin of 6.3 upon arrival Patient does have history of Jon's esophagus seen on previous EGDs up to 2022 Patient has also had colonic tumor removed in 2007 Due to patient's massive and recent weight loss about 80 pounds within 1 year, malignancy cannot be ruled out at this time Ferritin appears to be 3 at this time No history of esophageal varices or portal hypertension, therefore octreotide or propranolol not indicated at this time Hemoglobin 7.8 today EGD today, colonoscopy tomorrow Plan: ? Trend CBC ? Transfusion protocol hemoglobin below 7 ? Avoiding any NSAIDs ? SCDs ? Protonix 40 mg IV twice daily ? EGD today #Hypertension #History of BPH Chronic Plan: ? Holding blood pressure medicines including doxazosin as blood pressures soft at this point #History of tobacco use Plan: ? Nicotine patch as needed #Chronic lower back pain Plan: ? Resumed home [place] 5 every 8 hours #History of depression Plan: ? Resume home Paxil 40 mg daily #Health Maintenance Disposition: Telemetry DVT prophylaxis: SCDs GI prophylaxis: Protonix 40 mg IV twice daily Diet: N.p.o. CODE STATUS: Full Patient seen and care discussed with my attending physician, Dr. Mcdonough. Vineet Bradley, PGY-1 Attending Provider Attestation/Addendum I have examined the patient, reviewed labs and imaging findings, discussed the case with the resident(s), and reviewed entered orders. I agree with the plan of care as outlined in this note, with these additional summaries/recommendations: Patient seen at bedside. No acute overnight events. He reports he has had dark- colored stools for the last few days. He denies any abdominal pain or vomiting. He denies taking blood thinners. On admission hemoglobin noted to be 6.3. After blood transfusion hemoglobin improved to 8.1. Patient admitted for acute blood loss anemia secondary to GI bleed. Gastroenterology consulted with plans for endoscopic intervention this afternoon. Continue fluids and avoid all chemical anticoagulation. Transfuse for hemoglobin less than 7. Previous iron panel shows severe iron deficiency anemia with ferritin 3. We will start iron replacement once patient more improved. If EGD is unrevealing then patient would likely benefit from colonoscopy given severe iron deficiency anemia. Continue breathing treatments as needed for history of COPD. Patient is currently normotensive and no need for antihypertensive at this time. Patient updated on the plan and in agreement. All questions answered to satisfaction. Please see residents note for additional details of management. Dr. Ceasar MD
--- NOTE | 2024-06-24 12:35 | SUR.PHASEI ---
received pt and report from MADELAINE Brown. Pt arousable to voice. vss. IV intact, no s/s of infiltration or redness to site. Pt denies any pain to abd on palpation. Pt denies any nausea at this time.
--- NOTE | 2024-06-24 13:00 | SUR.PHASEI ---
report given to MADELAINE Soliz. Pt awake, A&ox3. no distress noted. vss. pt denies any pain or nausea. IV in place, no s/s of redness or infiltration noted to site.
--- NOTE | 2024-06-24 13:07 | PC.NURSE ---
Received pt. back from EGD, awake, alert, offers no complaints at this time, will cont. to monitor.
[2024-06-24] MEDS: NA SU/NAHCO3/KC/PEG (Golytely) 4,000 ML BTL 4000 ML PO (14:09)
[2024-06-24 16:34] LABS: OBS Performed By herns4; OBS QC OK? Yes; Occult Blood, Stool Positive (Negative)
[2024-06-24] MEDS: NICOTINE PATCH 21 MG/24 HR PATCH.TD24 TOP (16:38)
[2024-06-24] MEDS: PANTOPRAZOLE INJ 40 MG VIAL IVP (20:15)
[2024-06-25] VITALS (22 sets, daily range): BP systolic 101–139; BP diastolic 56–82; PULSE 60–82; RESP 12–21; TEMP 36.3–37.3; O2SAT 95–100; BMI 28.3
[2024-06-25 06:38] LABS: Alanine Aminotransferase 11 U/L (10-49); Albumin, Serum 4.1 gm/dL (3.4-4.8); Albumin/Globulin Ratio 2.1 (1.2-2.2); Alkaline Phosphatase 53 U/L (46-116); Anion Gap 8 (7-16); Aspartate Amino Transferase 22 U/L (0-34); BUN/Creatinine Ratio 9 Ratio (12-20); Bilirubin,Total 0.8 mg/dL (0.3-1.2); Blood Urea Nitrogen 7 mg/dL (9-23); Calcium 8.6 mg/dL (8.3-10.6); Calcium (Corrected) 8.6 mg/dL (8.5-10.1); Carbon Dioxide 22.9 mMol/L (20.0-31.0); Chloride 114 mMol/L (98-107); Creatinine (Component) 0.8 mg/dL (0.6-1.3); Estimated Creatinine Clearance 85.7 mL/min (>60); Glucose 91 mg/dL (74-106); Osmolality,Calculated 286 (275-295); Potassium 4.3 mMol/L (3.4-5.1); Sodium 145 mMol/L (136-145); Total Protein 6.1 gm/dL (5.7-8.2); eGFR > 60 See Note
[2024-06-25 07:01] LABS: Basophils # (Auto) 0.1 Thou/mm3 (0.0-0.2); Basophils % (Auto) 2 % (0-2.5); Eosinophils # (Auto) 0.1 Thou/mm3 (0.0-0.5); Eosinophils % (Auto) 2 % (0-10); Hematocrit 28.9 % (41.0-53.0); Immature Granulocytes % (Auto) 0 % (0-0); Immature Granulocytes Auto 0.02 Thou/mm3 (0.00-0.00); Lymphocytes # (Auto) 1.3 Thou/mm3 (1.0-4.8); Lymphocytes % (Auto) 20 % (10-50); Mean Corpuscular HGB Conc 28.4 g/dl (31.0-37.0); Mean Corpuscular Hemoglobin 18.5 pg (25.0-35.0); Mean Corpuscular Volume 65 fL (80-100); Monocytes # (Auto) 0.6 Thou/mm3 (0.0-0.8); Monocytes % (Auto) 9 % (0-12); Neutrophils # (Auto) 4.4 Thou/mm3 (1.8-7.7); Neutrophils % (Auto) 67 % (37-80); Nucleated Red Blood Cell % 0 /100 WBC (0); Platelet Count 244 Thou/mm3 (140-440); RDW Standard Deviation 69.5 fL (35.1-43.9); Red Blood Count 4.43 Miln/mm3 (4.50-5.90); White Blood Count 6.6 Thou/mm3 (3.8-10.6)
[2024-06-25 07:16] LABS: Hemoglobin 8.2 g/dL (13.5-16.0)
[2024-06-25] MEDS: PANTOPRAZOLE INJ 40 MG VIAL IVP ×2 (08:50→20:56)
[2024-06-25] MEDS: PARoxetine HCL 10 MG TABLET 40 MG PO (08:50)
--- NOTE | 2024-06-25 09:28 | PC.SS ---
Follow up note: Colonoscopy today. Pt will return home upon dc.
[2024-06-25] MEDS: HYDROcodone/APAP 5/325 TABLET 1 TAB PO (10:31)
--- NOTE | 2024-06-25 18:42 | PC.NURSE ---
Pt was taken to colonoscopy
--- NOTE | 2024-06-25 18:51 | PD.RESPRO ---
Documentation for date of: 06/25/24 Subjective Subjective Interval history: Patient examined at bedside today. No acute overnight events. Patient reports doing well and is wondering when he is going to get his colonoscopy today. Denies any blood in his stool with GoLytely prep. He has not coughed up any blood. He does not have any chest pain shortness of breath or generalized weakness or fatigue at this time. No other complaints at this time. Exam Vital Signs Temp Pulse Resp BP Pulse Ox O2 Del Method O2 Flow Rate 97.6 F 76 20 113/60 100 Room Air 3 06/25/24 15:44 06/25/24 18:45 06/25/24 18:45 06/25/24 18:45 06/25/24 18:45 06/25/24 12:00 06/25/24 18:45 Narrative Exam General: AAOx3, NAD, pleasant overweight male, wearing glasses HEENT: Moist mucous membranes, pale conjunctiva bilaterally, EOMI, PERRLA, Cardiovascular: S1, S2, radial pulses +2 bilat, RRR Pulmonary: CTAB bilat no cough, no wheezing GI: No tenderness to light or deep palpitation, no guarding, rigidity, rebound tenderness or distension Extremities: No presence of trace or pitting edema in lower extremities bilaterally, dorsalis pedis pulses +2 bilaterally Neuro: AAOx3, no focal motor or sensory deficits in the UE or LE bilat Psych: Good judgement, thought and behavior. Cooperative Objective Labs 06/26/24 05:07 06/26/24 05:07 Labs: Laboratory Results - last 24 hr 06/25/24 06/25/24 05:30 06:23 WBC 6.6 RBC 4.43 L Hgb 8.2 L Hct 28.9 L MCV 65 L MCH 18.5 L MCHC 28.4 L RDW Std Deviation 69.5 H Plt Count 244 Neut % (Auto) 67 Lymph % (Auto) 20 [place] % (Auto) 9 Eos % (Auto) 2 Baso % (Auto) 2 Neut # (Auto) 4.4 Lymph # (Auto) 1.3 [place] # (Auto) 0.6 Eos # (Auto) 0.1 Baso # (Auto) 0.1 Immature Gran # (Auto) 0.02 H Absolute Nucleated RBC 0.00 Immature Gran % 0 Nucleated RBC % 0 Sodium 145 Potassium 4.3 D Chloride 114 H Carbon Dioxide 22.9 Anion Gap 8 BUN 7 L Creatinine 0.8 Estim Creat Clear Calc 85.7 eGFR > 60 BUN/Creatinine Ratio 9 L Glucose 91 Calculated Osmolality 286 Calcium 8.6 Corrected Calcium 8.6 Magnesium 2.0 Total Bilirubin 0.8 AST 22 ALT 11 Alkaline Phosphatase 53 Total Protein 6.1 Albumin 4.1 Globulin 2.0 L Albumin/Globulin Ratio 2.1 Quality Measures Quality Measures none Advance care planning discussed with:: patient Assessment & Plan Assessment Current Active Medications: Generic Name Dose Route Start Last Admin Trade Name Freq PRN Reason Stop Dose Admin Acetaminophen 650 mg 06/23/24 19:32 Acetaminophen 325 Mg Tablet PO 07/23/24 19:31 Q6H PRN Fever >100 or pain 1-3 Hydrocodone Bitart/Acetaminophen 1 tab 06/23/24 19:32 06/25/24 10:31 Hydrocodone/Apap 5/325 Tablet PO 06/28/24 19:31 1 tab Q8H PRN Administration PAIN SCALE 4-6 (Moderate Albuterol/Ipratropium 3 ml 06/23/24 19:47 Albuterol/Ipratropium (Duoneb) Rt Majo 3 Ml Nebu INH 07/23/24 19:46 Q2HR PRN SHORTNESS OF BREATH OR WHEEZE Bisacodyl 10 mg 06/25/24 17:29 Bisacodyl 10 Mg Supp ME 06/25/24 19:30 X1 PRN Gas pain Diphenhydramine HCl 25 mg 06/25/24 17:29 Diphenhydramine Inj 50 Mg/Ml Vial IV 06/25/24 19:29 PRNMRX1 PRN MODERATE SEDATION Fentanyl Citrate 50 mcg 06/25/24 17:29 Fentanyl Cit Inj 50 Mcg/Ml Amp 2ml IV 06/25/24 19:29 Q2M PRN MODERATE SEDATION Midazolam HCl 2 mg 06/25/24 17:29 Midazolam Inj 1 Mg/Ml Vial 2 Ml IV 06/25/24 19:29 Q2M PRN Moderate Sedation Nicotine 21 mg 06/24/24 17:00 06/24/24 16:38 Nicotine Patch 21 Mg/24 Hr Patch.Td24 TOP 07/24/24 16:59 21 mg QDAY PRN Administration nicotine craving Ondansetron HCl 4 mg 06/23/24 19:32 Ondansetron Inj 2 Mg/Ml Inj 2 Ml IV 07/23/24 19:31 Q6H PRN NAUSEA OR VOMITING Protocol Pantoprazole Sodium 40 mg 06/24/24 21:00 06/25/24 08:50 Pantoprazole Inj 40 Mg Vial IVP 07/24/24 20:59 40 mg BID AVERY Administration Paroxetine HCl 40 mg 06/24/24 09:00 06/25/24 08:50 Paroxetine Hcl 10 Mg Tablet PO 07/24/24 08:59 40 mg QDAY AVERY Administration Plan Assessment Alok is a 74-year-old male with past medical history of hypertension, BPH, Jon's esophagus, tobacco use, who is currently admitted for acute blood loss anemia and GI bleed. #Acute blood loss anemia #GI bleed #Iron deficiency anemia #History of Jon's esophagus DDx: AVM, Cancer, chronic anemia, medication induced FOBT: Pending NSAID use: None Blood thinner use: None Hemoglobin of 6.3 upon arrival Patient does have history of Jon's esophagus seen on previous EGDs up to 2022 Patient has also had colonic tumor removed in 2007 Due to patient's massive and recent weight loss about 80 pounds within 1 year, malignancy cannot be ruled out at this time Ferritin appears to be 3 at this time No history of esophageal varices or portal hypertension, therefore octreotide or propranolol not indicated at this time Hemoglobin 8.2 today EGD shows erythematous mucosa Patient will need to have colonoscopy after GoLytely prep is done to identify bleeding source Plan: ? Trend CBC ? Transfusion protocol hemoglobin below 7 ? Avoiding any NSAIDs ? SCDs ? Protonix 40 mg IV twice daily ? Colonoscopy today #Hypertension #History of BPH Chronic Plan: ? Holding blood pressure medicines including doxazosin as blood pressures soft at this point #History of tobacco use Plan: ? Nicotine patch as needed #Chronic lower back pain Plan: ? Resumed home [place] 5 every 8 hours #History of depression Plan: ? Resume home Paxil 40 mg daily #Health Maintenance Disposition: Telemetry DVT prophylaxis: SCDs GI prophylaxis: Protonix 40 mg IV twice daily Diet: Clear Liquid CODE STATUS: Full Patient seen and care discussed with my attending physician, Dr. Mcdonough. Vineet Bradley, PGY-1 Attending Provider Attestation/Addendum I have examined the patient, reviewed labs and imaging findings, discussed the case with the resident(s), and reviewed entered orders. I agree with the plan of care as outlined in this note, with these additional summaries/recommendations: Patient seen at bedside. No acute overnight events. Patient went for EGD yesterday, which revealed normal esophagus, erythematous mucosa in gastric antrum, and normal duodenum. Since source of bleeding was not idenitifed patient is recigin golytely prep and will go for colonoscopy today with gastroenterology. On admission hemoglobin noted to be 6.3. After blood transfusion, hemoglobin improved to 8.1 and is currently 8.2 today. Patient admitted for acute blood loss anemia secondary to GI bleed. Continue fluids and avoid all chemical anticoagulation. Transfuse for hemoglobin less than 7. Previous iron panel shows severe iron deficiency anemia with ferritin 3. We will start iron replacement once patient more improved. Continue breathing treatments as needed for history of COPD. Patient is currently normotensive and no need for antihypertensive at this time. Patient updated on the plan and in agreement. All questions answered to satisfaction. Please see residents note for additional details of management. Dr. Ceasar MD
--- NOTE | 2024-06-25 19:07 | SUR.PHASEI ---
pt arrived to PACU via gurney awake, alert, able to follow commands, breathing unlabored, report from Katey BURKETT
--- NOTE | 2024-06-25 19:39 | SUR.PHASEI ---
pt awake, alert, able to follow commands, breathing unlabored, pt able to tolerate oral fluids without difficulty swallowing or n/v, report called to Heike BURKETT, pt transferred to room at this time.
[2024-06-26] VITALS: BP 99/52; PULSE 65; PULSE 73; RESP 18; TEMP 36.9; O2SAT 94
[2024-06-26 00:52] LABS: Hematocrit 29.4 % (41.0-53.0)
[2024-06-26 04:00] VITALS: BP 117/74; PULSE 76; PULSE 91; RESP 16; TEMP 36.8; O2SAT 96
[2024-06-26 06:14] LABS: Basophils # (Auto) 0.2 Thou/mm3 (0.0-0.2); Basophils % (Auto) 2 % (0-2.5); Eosinophils # (Auto) 0.1 Thou/mm3 (0.0-0.5); Eosinophils % (Auto) 1 % (0-10); Immature Granulocytes % (Auto) 0 % (0-0); Immature Granulocytes Auto 0.03 Thou/mm3 (0.00-0.00); Lymphocytes # (Auto) 1.2 Thou/mm3 (1.0-4.8); Lymphocytes % (Auto) 14 % (10-50); Mean Corpuscular HGB Conc 26.6 g/dl (31.0-37.0); Mean Corpuscular Hemoglobin 18.1 pg (25.0-35.0); Mean Corpuscular Volume 68 fL (80-100); Monocytes # (Auto) 0.8 Thou/mm3 (0.0-0.8); Monocytes % (Auto) 9 % (0-12); Neutrophils # (Auto) 6.7 Thou/mm3 (1.8-7.7); Neutrophils % (Auto) 75 % (37-80); Nucleated Red Blood Cell % 0 /100 WBC (0); Platelet Count 280 Thou/mm3 (140-440); RDW Standard Deviation 74.4 fL (35.1-43.9)
[2024-06-26 06:20] LABS: Hemoglobin 8.5 g/dL (13.5-16.0)
[2024-06-26 06:39] LABS: Alanine Aminotransferase 11 U/L (10-49); Albumin, Serum 3.9 gm/dL (3.4-4.8); Alkaline Phosphatase 52 U/L (46-116); Anion Gap 10 (7-16); Aspartate Amino Transferase 20 U/L (0-34); BUN/Creatinine Ratio 9 Ratio (12-20); Bilirubin,Total 0.7 mg/dL (0.3-1.2); Blood Urea Nitrogen 8 mg/dL (9-23); Calcium 8.6 mg/dL (8.3-10.6); Calcium (Corrected) 8.7 mg/dL (8.5-10.1); Carbon Dioxide 23.4 mMol/L (20.0-31.0); Chloride 111 mMol/L (98-107); Creatinine (Component) 0.9 mg/dL (0.6-1.3); Estimated Creatinine Clearance 76.1 mL/min (>60); Glucose 91 mg/dL (74-106); Osmolality,Calculated 285 (275-295); Potassium 3.8 mMol/L (3.4-5.1); Sodium 144 mMol/L (136-145); Total Protein 5.9 gm/dL (5.7-8.2); eGFR > 60 See Note
[2024-06-26 07:35] VITALS: BP 135/74; PULSE 77; RESP 17; TEMP 36.1; O2SAT 98
[2024-06-26 08:00] VITALS: BP 126/82; PULSE 76; PULSE 88; RESP 18; TEMP 36.7; O2SAT 98
[2024-06-26] MEDS: PARoxetine HCL 10 MG TABLET 40 MG PO (08:58)
[2024-06-26] MEDS: PANTOPRAZOLE INJ 40 MG VIAL IVP (08:59)
[2024-06-26] MEDS: HYDROcodone/APAP 5/325 TABLET 1 TAB PO (09:02)
[2024-06-26 10:04] VITALS: PULSE 79; RESP 16; O2SAT 98
[2024-06-26 12:00] VITALS: BP 124/75; PULSE 73; PULSE 83; RESP 15; TEMP 36.7; O2SAT 99
--- NOTE | 2024-06-26 19:49 | ESDS_ITS ---
Planned Discharge Date 06/26/24 DS: Providers Provider Date of admission: 06/23/24 17:50 Primary care physician: Nestor Barrera MD Admitting Provider: Frederick Mcdonough MD Attending Provider on Admission: Shankar Cervantes MD Consults: 06/23/24 15:00 Consult to Gastroenterology Stat Comment: Upper GI bleed Consulting Provider: Markus Hubbard Attending Provider on DC: Nandini Peña MD Discharging Provider: Nandini Peña MD DS: Diagnosis Problem List Completed Was Problem List Reviewed/Reconciled?: Yes Hospital Course Hospital Course Hospital course: A 74-year-old male patient with past medical history of hypertension, BPH, Jon's of the 50s, tobacco use, came after he was found to have black tarry stool associated with generalized weakness. Patient reported that this is his second episode of black tarry stool and has gotten 3 years ago under EGD and colonoscopy workup. At the ED patient was found to have normal vital signs, however his hemoglobin was 6.3, BUN 15, serum creatinine 0.8. T bilirubin was unremarkable, EKG found to have AV block. Patient received 2 units of packed RBC in the ED. During his stay we consulted sword swallower Dr. Hubbard and he recommended to do an EGD for the patient. At the EGD it showed only erythematous mucosa of the gastric antrum however there was no source of bleeding identified for the reason Dr. Hubbard recommended colonoscopy and which showed internal hemorrhoids which were banded, it also showed a single nonbleeding colonic angiodysplastic lesion which was cauterized, and also found to have 1 cm of polyp in the cecum of the sigmoid colon and was removed by hot snare and was sent for pathology report. Today patient deemed to be clinically stable for discharge and follow-up in outpatient setting, and was given the following instructions: You will need to follow up with your primary care provider within one week from discharge You will need to follow up with you GI specialist for biopsy results and further recommendations Use medications as presscribed In case of any emergency please return to the ED as soon as possible - Patient's plan and care discussed with my attending, Dr. Pranav Peña MD Internal Medicine PGY-2 Time Spent with Patient Time attestation: Total time spent providing and/or coordinating discharge services: Time spent: Less than 30 minutes Exam Vital Signs Temp Pulse Resp BP Pulse Ox O2 Del Method O2 Flow Rate 98.0 F 73 15 124/75 99 Room Air 3 06/26/24 12:00 06/26/24 12:06/26/24 12:06/26/24 12:00 06/26/24 12:06/26/24 12:06/25/24 19:00 Narrative Exam GEN: AOx3, able to speak full sentences HEENT: NC/AC, PERRLA, oral mucosa moist, neck supple CVS: RRR, S1-S2 present, no murmurs appreciated RESP: CTAB GI: soft,non distended, non tender, NBS MSK: able to move all 4 limbs, no lower extremity edema SKIN: warm and dry SUPERINTENDENT TRANSPORTATION: CN II-XII and Sensation grossly intact. Discharge Plan Plan Patient Disposition: HOME (Self Care) Patient condition on transfer: Stable and Benefits outweigh risks Care Plan Goals: You will need to follow up with your primary care provider within one week from discharge You will need to follow up with you GI specialist for biopsy results and further recommendations Use medications as presscribed In case of any emergency please return to the ED as soon as possible Prescriptions/Referrals Prescriptions/Med Rec: Continued paroxetine HCl 40 mg tablet 1 tab PO QDAY pantoprazole 40 mg Tablet,Delayed Release (Dr/Ec) 40 mg PO QDAY albuterol sulfate 90 mcg/actuation HFA aerosol inhaler 2 puff INHALATION Q6H PRN (Reason: shortness of breath or wheezing) Discontinued hydrocodone-acetaminophen 5-325 mg Tablet 1 tab PO Q6H PRN (Reason: Pain) Qty: 0 Referrals: Nestor Barrera MD [Primary Care Provider] - Patient/Caregiver Discharge Instructions Discharge Activity: activity as tolerated Education Materials: Bleeding Gastrointestinal, Anemia, Anatomy of the Digestive System Print Language: Kazakh Stand Alone Forms: Jess Award Info., Patient Portal Info Letter Discharge Order Discharge Orders: Discharge (Routine); Ordered 06/26/24 Ordered By: Nandini Peña Quality Discharge Quality Measures none MD Attestestation MD Attestation I attest that I was physically present for the evaluation, physical examination, lab and imaging review of the patient with the residents. I discussed the case with the residents and agree with the findings and plans of care as documented above. Shankar Cervantes MD
== END 2024-06-26 13:13 | disposition home or self-care (01) | DRG 347 ==
LOC: SERX 15:17 → SERHOLD 18:09 → S3NX 21:16
PROVIDERS: Nurse Practitioner Family; Specialist; Student in an Organized Health Care Education/Training Program; Admitting Provider Student in an Organized Health Care Education/Training Program; Emergency Provider Emergency Medicine; PCP Family Medicine; Visit Provider Student in an Organized Health Care Education/Training Program
PROC: 0DJ08ZZ Inspection of Upper Intestinal Tract, Via Natural or Artificial Opening Endoscopic (ICD-10-PCS; CPT 43239; principal; 2024-06-24 12:00)
PROC: 0DJD8ZZ Inspection of Lower Intestinal Tract, Via Natural or Artificial Opening Endoscopic (ICD-10-PCS; CPT 45378; principal; 2024-06-25 19:30)
DX: D12.0 Benign neoplasm of cecum (principal); K57.31 Diverticulosis of large intestine without perforation or abscess with bleeding; D62 Acute posthemorrhagic anemia; K55.20 Angiodysplasia of colon without hemorrhage; I10 Essential (primary) hypertension; N40.0 Benign prostatic hyperplasia without lower urinary tract symptoms; K22.70 Barrett's esophagus without dysplasia; D50.9 Iron deficiency anemia, unspecified; M54.50 Low back pain, unspecified; F32.A Depression, unspecified; K31.89 Other diseases of stomach and duodenum; I44.30 Unspecified atrioventricular block; J44.9 Chronic obstructive pulmonary disease, unspecified; K64.2 Third degree hemorrhoids; G89.4 Chronic pain syndrome; D12.5 Benign neoplasm of sigmoid colon; Z79.899 Other long term (current) drug therapy; Z87.891 Personal history of nicotine dependence; Z88.8 Allergy status to other drugs, medicaments and biological substances
CPT/HCPCS: 36415; 36430; 80053; 80061; 81001; 82270; 83036; 83735; 84100; 85014; 85018; 85025; 85046; 85610; 85730; 86850; 86900; 86901; 86923; 93005; 93225; 96374; 99285; A4217; A4649; J1200; J2250; J2470; J3010; P9016; A9270

== ENCOUNTER → 2024-08-07 | Outpatient (CLI) | payer OTHER, SELFPAY ==
[2024-08-07 11:53] LABS: Collection Type, Urine Clean Catch; Squamous Epithelial Cell,Urine 0 /hpf (0-5)
[2024-08-07 12:22] LABS: Basophils # (Auto) 0.1 Thou/mm3 (0.0-0.2); Basophils % (Auto) 1 % (0-2.5); Eosinophils # (Auto) 0.1 Thou/mm3 (0.0-0.5); Eosinophils % (Auto) 1 % (0-10); Hematocrit 30.8 % (41.0-53.0); Immature Granulocytes % (Auto) 0 % (0-0); Immature Granulocytes Auto 0.02 Thou/mm3 (0.00-0.00); Lymphocytes # (Auto) 1.5 Thou/mm3 (1.0-4.8); Lymphocytes % (Auto) 19 % (10-50); Mean Corpuscular HGB Conc 27.6 g/dl (31.0-37.0); Mean Corpuscular Hemoglobin 18.5 pg (25.0-35.0); Mean Corpuscular Volume 67 fL (80-100); Monocytes # (Auto) 0.8 Thou/mm3 (0.0-0.8); Monocytes % (Auto) 10 % (0-12); Neutrophils # (Auto) 5.2 Thou/mm3 (1.8-7.7); Neutrophils % (Auto) 68 % (37-80); Nucleated Red Blood Cell % 0 /100 WBC (0); Platelet Count 307 Thou/mm3 (140-440); RDW Standard Deviation 64.9 fL (35.1-43.9); Red Blood Count 4.59 Miln/mm3 (4.50-5.90); White Blood Count 7.6 Thou/mm3 (3.8-10.6)
[2024-08-07 12:26] LABS: Bilirubin,Urine Negative (Negative); Blood,Urine Negative (Negative); Clarity,Urine Clear (Clear/Hazy); Color,Urine Drk-Yellow (Lt Yel-Yel); Culture Indicated,Urine Not Indicated; Glucose, Urine Negative (Negative); Ketones,Urine Negative (Negative); Leukocyte Esterase,Urine Negative (Negative); Nitrite,Urine Negative (Negative); PH,Urine 6.5 (5.0-7.0); Protein,Urine Negative (Neg - Trace); RBC,Urine 2 /hpf (0-3); Specific Gravity,Urine 1.025 (1.001-1.035); WBC,Urine 1 /hpf (0-5)
[2024-08-07 12:28] LABS: Glucose Estimated Average 97 mg/dL (80-131)
[2024-08-07 12:39] LABS: Hemoglobin 8.5 g/dL (13.5-16.0)
[2024-08-07 12:42] LABS: Alanine Aminotransferase 21 U/L (10-49); Albumin, Serum 4.2 gm/dL (3.4-4.8); Albumin/Globulin Ratio 2.3 (1.2-2.2); Alkaline Phosphatase 62 U/L (46-116); Anion Gap 3 (7-16); Aspartate Amino Transferase 18 U/L (0-34); BUN/Creatinine Ratio 15 Ratio (12-20); Bilirubin,Total 0.3 mg/dL (0.3-1.2); Blood Urea Nitrogen 12 mg/dL (9-23); Calcium 8.9 mg/dL (8.3-10.6); Calcium (Corrected) 8.9 mg/dL (8.5-10.1); Carbon Dioxide 26.6 mMol/L (20.0-31.0); Cardiac Risk Estimate 3.2 RATIO (4.0-6.7); Chloride 112 mMol/L (98-107); Cholesterol 164 mg/dL (132-200); Creatinine (Component) 0.8 mg/dL (0.6-1.3); Globulin 1.8 gm/dL (2.3-3.5); Glucose 91 mg/dL (74-106); HDL Cholesterol 52 mg/dL (40-60); LDL Cholesterol,Calculated 92 mg/dL (0-130); Osmolality,Calculated 282 (275-295); Potassium 4.8 mMol/L (3.4-5.1); Sodium 142 mMol/L (136-145); Thyroid Stimulating Hormone 1.14 uIU/mL (0.55-4.78); Triglycerides 102 mg/dL (30-150); eGFR > 60 See Note
== END | disposition home or self-care (01) ==
LOC: COPL 10:39
PROVIDERS: PCP Family Medicine; Referring Provider Nurse Practitioner Family; Visit Provider Nurse Practitioner Family
DX: Z00.00 Encounter for general adult medical examination without abnormal findings (principal); Z12.5 Encounter for screening for malignant neoplasm of prostate
CPT/HCPCS: 36415; 80053; 80061; 81001; 83036; 84153; 84443; 85025

== ENCOUNTER → 2024-09-26 | Outpatient (CLI) | payer OTHER, SELFPAY ==
[2024-09-26 11:57] LABS: Basophils # (Auto) 0.1 Thou/mm3 (0.0-0.2); Basophils % (Auto) 1 % (0-2.5); Eosinophils # (Auto) 0.1 Thou/mm3 (0.0-0.5); Eosinophils % (Auto) 1 % (0-10); Hematocrit 29.9 % (41.0-53.0); Immature Granulocytes Auto 0.05 Thou/mm3 (0.00-0.00); Lymphocytes # (Auto) 1.6 Thou/mm3 (1.0-4.8); Lymphocytes % (Auto) 19 % (10-50); Mean Corpuscular HGB Conc 28.1 g/dl (31.0-37.0); Mean Corpuscular Hemoglobin 18.7 pg (25.0-35.0); Mean Corpuscular Volume 66 fL (80-100); Monocytes # (Auto) 0.7 Thou/mm3 (0.0-0.8); Monocytes % (Auto) 9 % (0-12); Neutrophils # (Auto) 5.9 Thou/mm3 (1.8-7.7); Neutrophils % (Auto) 70 % (37-80); Nucleated Red Blood Cell # 0.00 Thou/mm3 (0.00-0.00); Nucleated Red Blood Cell % 0 /100 WBC (0); Platelet Count 249 Thou/mm3 (140-440); RDW Standard Deviation 51.3 fL (35.1-43.9); Red Blood Count 4.50 Miln/mm3 (4.50-5.90); White Blood Count 8.5 Thou/mm3 (3.8-10.6)
[2024-09-26 12:08] LABS: Hemoglobin 8.4 g/dL (13.5-16.0)
[2024-09-26 12:23] LABS: Ferritin 4 ng/mL (10.5-307.3); Iron 10 mcg/dL (65-175); Total Iron Binding Capacity 429 mcg/dL (250-425)
== END | disposition home or self-care (01) ==
LOC: COPL 11:08
PROVIDERS: PCP Family Medicine; Referring Provider Family Medicine; Visit Provider Family Medicine
DX: D50.0 Iron deficiency anemia secondary to blood loss (chronic) (principal)
CPT/HCPCS: 36415; 82728; 83540; 83550; 85025

== ENCOUNTER → 2024-10-08 | Outpatient (CLI) | payer OTHER, SELFPAY ==
--- NOTE | 2024-10-08 13:00 | XR_ITS ---
Examination: CT chest, without intravenous contrast. Sagittal and coronal 2-D reconstructions. Exam date and time: October 08, 2024 1311 hours INDICATIONS: Smoking history 50 years CTDI:vol (mGy) 13.5 DLP: (mGycm) 527 Technique: Multiple 3.0 mm axial sections of the chest to been obtained. Bone and lung density settings are obtained. Sagittal and coronal 2-D reconstructions have been obtained. Low dose protocols were performed. One or more of the following dose reduction techniques were used; automated exposure control, adjustment of the mA and/or KV according to patient size, use of iterative reconstruction technique. Findings: No thoracic aortic aneurysm dilatation Pulmonary artery segments are not enlarged. Mild enlargement cardiac contour. No paratracheal tracheobronchial or bronchopulmonary adenopathy. 6 mm pulmonary nodule right midlung image 193 5 mm pulmonary nodule right middle lobe image 196 2 mm pulmonary nodule right upper lobe image 208 2 mm pulmonary nodule right lower lobe image 226 No pneumonia or pulmonary edema No visualized liver or splenic lesion Contracted gallbladder No pancreatic mass Kidneys partially visualized no hydronephrosis Moderate osteopenia with reactive bony endplate change at the L2-L3 level IMPRESSION: Noncalcified pulmonary nodules as above, with this study as baseline recommend 6 month follow-up CT chest without contrast
== END | disposition home or self-care (01) ==
PROVIDERS: PCP Family Medicine; Referring Provider Family Medicine; Visit Provider Family Medicine
DX: Z12.2 Encounter for screening for malignant neoplasm of respiratory organs (principal); Z71.6 Tobacco abuse counseling; R91.8 Other nonspecific abnormal finding of lung field
CPT/HCPCS: 71250

== ENCOUNTER → 2024-11-22 | Outpatient (CLI) | payer OTHER, SELFPAY ==
[2024-11-22 11:33] LABS: Basophils # (Auto) 0.1 Thou/mm3 (0.0-0.2); Basophils % (Auto) 1 % (0-2.5); Eosinophils # (Auto) 0.1 Thou/mm3 (0.0-0.5); Eosinophils % (Auto) 1 % (0-10); Hematocrit 39.1 % (41.0-53.0); Hemoglobin 11.7 g/dL (13.5-16.0); Immature Granulocytes Auto 0.02 Thou/mm3 (0.00-0.00); Lymphocytes # (Auto) 2.0 Thou/mm3 (1.0-4.8); Lymphocytes % (Auto) 25 % (10-50); Mean Corpuscular HGB Conc 29.9 g/dl (31.0-37.0); Mean Corpuscular Hemoglobin 23.5 pg (25.0-35.0); Mean Corpuscular Volume 79 fL (80-100); Monocytes # (Auto) 0.8 Thou/mm3 (0.0-0.8); Monocytes % (Auto) 10 % (0-12); Neutrophils # (Auto) 5.1 Thou/mm3 (1.8-7.7); Neutrophils % (Auto) 63 % (37-80); Nucleated Red Blood Cell # 0.00 Thou/mm3 (0.00-0.00); Nucleated Red Blood Cell % 0 /100 WBC (0); Platelet Count 233 Thou/mm3 (140-440); Red Blood Count 4.98 Miln/mm3 (4.50-5.90); White Blood Count 8.1 Thou/mm3 (3.8-10.6)
[2024-11-22 11:44] LABS: Iron 28 mcg/dL (65-175); Percent Iron Saturation 7 % (20-55); Total Iron Binding Capacity 388 mcg/dL (250-425); Unsaturated Iron Binding 360 (225-295)
== END | disposition home or self-care (01) ==
LOC: COPL 10:39
PROVIDERS: PCP Family Medicine; Referring Provider Family Medicine; Visit Provider Family Medicine
DX: D50.0 Iron deficiency anemia secondary to blood loss (chronic) (principal)
CPT/HCPCS: 36415; 83540; 83550; 85025